=== PATIENT | male | born 1940 | race Caucasian/White ===

== ENCOUNTER 2017-09-11 03:58 | Emergency (ER) | payer OTHER ==
[~2017-09-11 03:58] MED LIST: ATEN50TA PO; FELO10TA31 PO; HYDR12.54 PO; LATA2.5D2 OU
[2017-09-11 04:19] LABS: BASOPHILS % (AUTO) 0.5 % (0.0-5.0); EOSINOPHILS % (AUTO) 0.9 % (0.0-8.0); HEMATOCRIT 37.4 % (42-54); LYMPHOCYTES % (AUTO) 8.5 % (21.0-51.0); MEAN CORPUSCULAR HEMOGLOBIN 32.9 pg (27.0-33.0); MEAN CORPUSCULAR HGB CONC 35.8 g/dL (32.0-36.0); MEAN CORPUSCULAR VOLUME 91.8 fL (79-99); MONOCYTES % (AUTO) 6.7 % (3.0-13.0); NEUTROPHILS % (AUTO) 83.4 % (40.0-77.0); PLATELET COUNT (AUTO) 264 K/uL (130-400); RED BLOOD CELL COUNT(AUTO) 4.07 MIL/uL (4.50-6.20); RED CELL DISTRIBUTION WIDTH 13.4 % (11.0-15.5); WHITE BLOOD COUNT (AUTO) 10.5 K/uL (4.8-10.8)
[2017-09-11 04:29] LABS: CREATININE 0.8 mg/dL (0.5-1.5); POTASSIUM 3.5 mmol/L (3.5-5.1)
[2017-09-11 04:34] LABS: INR 0.95 (0.85-1.15); PARTIAL THROMBOPLASTIN TIME 26.6 SEC (26.3-35.5)
[2017-09-11 04:42] LABS: ALBUMIN 4.1 g/dL (3.5-5.0); BILIRUBIN,TOTAL 0.4 mg/dL (0.2-1.0); CREATINE KINASE MB 2.5 ng/mL (0.5-3.6); TOTAL PROTEIN, SERUM 7.5 g/dL (6.0-8.3)
[2017-09-11] MEDS ORDERED: LIDOCAINE HCL 2% VISCOUS 15 ML UDCUP ONE (04:57)
[2017-09-11] MEDS ORDERED: MAG HYDROX/AL HYDROX/SIMETH ES 30 ML SUSP UDCUP ONE (04:57)
[2017-09-11 05:46] LABS: APPEARANCE,URINE CLEAR (CLEAR); BILIRUBIN,URINE Negative (NEGATIVE); COLOR,URINE Dark Yellow (YELLOW); GLUCOSE, URINE (UA) Negative (NEGATIVE); KETONES,URINE Trace mg/dL (NEGATIVE); LEUKOCYTE ESTERASE ,URINE Negative (NEGATIVE); NITRATE,URINE Negative (NEGATIVE); OCCULT BLOOD,URINE Negative (NEGATIVE); PH,URINE 7.5 (5.0-8.0); PROTEIN,URINE Negative (NEGATIVE); UROBILINOGEN,URINE 0.2 mg/dL (0.2-1.0)
== END 2017-09-11 06:09 | disposition home or self-care (01) ==
LOC: EDH 03:58
DX: R10.10 Upper abdominal pain, unspecified (principal); I10 Essential (primary) hypertension; Z88.8 Allergy status to other drugs, medicaments and biological substances
CPT/HCPCS: 36415; 74176; 80053; 81003; 82150; 82550; 82553; 83690; 84484; 85025; 85610; 85730; 93005

== ENCOUNTER → 2018-06-05 | Outpatient (CLI) | payer OTHER | END | disposition home or self-care (01) | LOC: RAH 10:58 | PROVIDERS: ATTEND Nurse Practitioner Family | DX: M47.22 Other spondylosis with radiculopathy, cervical region (principal); M48.02 Spinal stenosis, cervical region; M50.10 Cervical disc disorder with radiculopathy, unspecified cervical region; J32.0 Chronic maxillary sinusitis; G62.9 Polyneuropathy, unspecified | CPT/HCPCS: 72040; 72141 ==

== ENCOUNTER → 2018-08-02 | Outpatient (CLI) | payer OTHER | END | disposition home or self-care (01) | LOC: RAH 13:12 | PROVIDERS: ATTEND Physical Medicine & Rehabilitation | DX: M19.031 Primary osteoarthritis, right wrist (principal); M18.0 Bilateral primary osteoarthritis of first carpometacarpal joints | CPT/HCPCS: 73100 ==

== ENCOUNTER 2021-08-14 14:30 | Emergency (ER) | payer MEDICARE, OTHER ==
[~2021-08-14] VITALS: Ht 172.7 cm; Wt 72.1 kg
[~2021-08-14 14:30] MED LIST changes: -FELO10TA31 PO; +FELO10TA46 PO; +LATA2.5D14 OU; -LATA2.5D2 OU
[2021-08-14 14:44] VITALS: BP 149/84
[2021-08-14] MEDS ORDERED: TETANUS/DIPHTHERIA TOXOID [ADULT] 0.5 ML VIAL IM ONE (15:00)
[2021-08-14] MEDS ORDERED: ACETAMINOPHEN 500 MG TABLET PO ONE (15:00)
[2021-08-14 15:51] LABS: BASOPHILS % (AUTO) 0.3 % (0.0-5.0); EOSINOPHILS % (AUTO) 0.6 % (0.0-8.0); HEMATOCRIT 37.5 % (42-54); LYMPHOCYTES % (AUTO) 6.7 % (21.0-51.0); MEAN CORPUSCULAR HEMOGLOBIN 31.9 pg (27.0-33.0); MEAN CORPUSCULAR HGB CONC 34.4 g/dL (32.0-36.0); MEAN CORPUSCULAR VOLUME 92.8 fL (79-99); MONOCYTES % (AUTO) 5.1 % (3.0-13.0); PLATELET COUNT (AUTO) 258 K/uL (130-400); RED BLOOD CELL COUNT(AUTO) 4.04 MIL/uL (4.50-6.20); RED CELL DISTRIBUTION WIDTH 12.7 % (11.0-15.5); WHITE BLOOD COUNT (AUTO) 9.1 K/uL (4.8-10.8)
[2021-08-14 16:14] LABS: POTASSIUM 3.5 mmol/L (3.5-5.1)
[2021-08-14 16:15] LABS: BILIRUBIN,TOTAL 0.4 mg/dL (0.2-1.0); CREATININE 0.6 mg/dL (0.5-1.5)
[2021-08-14 16:16] LABS: TOTAL PROTEIN, SERUM 7.5 g/dL (6.0-8.3)
[2021-08-14] MEDS ORDERED: LIDOCAINE HCL-MPF 2% 5ML VIAL ONE (16:25)
[2021-08-14] MEDS ORDERED: LIDOCAINE HCL 1% 20 ML VIAL INJ SCH (16:30)
== END 2021-08-14 17:07 | disposition home or self-care (01) ==
LOC: EDH 14:30
DX: S01.81XA Laceration without foreign body of other part of head, initial encounter (principal); S16.1XXA Strain of muscle, fascia and tendon at neck level, initial encounter; I10 Essential (primary) hypertension; W18.39XA Other fall on same level, initial encounter; Y93.89 Activity, other specified; Y92.89 Other specified places as the place of occurrence of the external cause; Y99.8 Other external cause status
CPT/HCPCS: 12013; 36415; 70450; 72125; 80053; 84484; 85025; 90471; 90714; 99284; J3490

== ENCOUNTER 2021-08-21 13:00 | Emergency (ER) | payer MEDICARE ==
[~2021-08-21] VITALS: Ht 172.7 cm; Wt 69.4 kg
[2021-08-21 13:59] VITALS: BP 101/66
== END 2021-08-21 14:02 | disposition home or self-care (01) ==
LOC: EDH 13:00
DX: S01.81XD Laceration without foreign body of other part of head, subsequent encounter (principal); I10 Essential (primary) hypertension; Z79.899 Other long term (current) drug therapy; X58.XXXD Exposure to other specified factors, subsequent encounter
CPT/HCPCS: 99281

== ENCOUNTER 2022-06-16 14:38 | Observation (INO) | payer MEDICARE ==
[~2022-06-16] VITALS: Ht 172.7 cm; Wt 71.0 kg
[2022-06-16] MEDS ORDERED: 0.9%NACL 1000ML 1,000 ML IV ONE (16:30)
[2022-06-16 16:32] LABS: BASOPHILS % (AUTO) 0.2 % (0.0-5.0); EOSINOPHILS % (AUTO) 0.2 % (0.0-8.0); HEMATOCRIT 39.4 % (42-54); MEAN CORPUSCULAR HEMOGLOBIN 31.1 pg (27.0-33.0); MEAN CORPUSCULAR HGB CONC 34.5 g/dL (32.0-36.0); MONOCYTES % (AUTO) 5.1 % (3.0-13.0); NEUTROPHILS % (AUTO) 92.2 % (40.0-77.0); PLATELET COUNT (AUTO) 269 K/uL (130-400); RED BLOOD CELL COUNT(AUTO) 4.38 MIL/uL (4.50-6.20); RED CELL DISTRIBUTION WIDTH 12.4 % (11.0-15.5); WHITE BLOOD COUNT (AUTO) 15.7 K/uL (4.8-10.8)
[2022-06-16] MEDS: DICYCLOMINE HCL 20 MG TAB PO SCH (16:36)
[2022-06-16 16:42] LABS: APPEARANCE,URINE CLEAR (CLEAR); BILIRUBIN,URINE NEGATIVE (NEGATIVE); COLOR,URINE YELLOW (YELLOW); GLUCOSE, URINE (UA) NEGATIVE (NEGATIVE); KETONES,URINE NEGATIVE (NEGATIVE); LEUKOCYTE ESTERASE ,URINE NEGATIVE Leu/uL (NEGATIVE); NITRATE,URINE NEGATIVE (NEGATIVE); OCCULT BLOOD,URINE NEGATIVE (NEGATIVE); PH,URINE 5.5 (5.0-8.0); PROTEIN,URINE NEGATIVE (NEGATIVE); UROBILINOGEN,URINE 0.2 mg/dL (0.2-1.0)
[2022-06-16 16:47] LABS: RBC,URINE 0-1 /HPF (0-1); WBC,URINE 0-1 /HPF (0-1)
[2022-06-16 16:48] LABS: ALBUMIN 3.7 g/dL (3.5-5.0); CREATININE 0.7 mg/dL (0.5-1.5); TOTAL PROTEIN, SERUM 7.2 g/dL (6.0-8.3)
[2022-06-16 16:51] LABS: POTASSIUM 2.7 mmol/L (3.5-5.1)
[2022-06-16] MEDS ORDERED: POTA-202 PO (16:57)
[2022-06-16] MEDS: POTASSIUM CHLORIDE 20MEQ/100ML 100 ML IV ONE ×2 (17:19→18:50)
[2022-06-16] MEDS: POTASSIUM CHLORIDE 20 MEQ/100 ML BAG IV SCH ×2 (17:30→17:42)
[2022-06-16] MEDS ORDERED: ONDANSETRON 4MG INJ IV PRN (18:30)
[2022-06-16] MEDS ORDERED: ACETAMINOPHEN 325 MG TAB PO PRN ×2 (18:30)
[2022-06-16] MEDS ORDERED: POTASSIUM CHLORIDE 10% ELIXIR 20 MEQ/15 ML UDCUP ONE (19:13)
[2022-06-16] MEDS: LACTATED RINGERS 1000ML 1,000 ML IV SCH (19:16)
[2022-06-16] MEDS: POTASSIUM CHLORIDE 10% ELIXIR 20 MEQ/15 ML UDCUP PO SCH (19:16)
[2022-06-16] MEDS ORDERED: NS-20 MEQ KCL 1000ML 1,000 ML IV ONE (21:00)
[2022-06-16] MEDS: METRONIDAZOLE 500MG/100ML BAG 100 ML IVPB SCH (21:46)
[2022-06-16 23:30] VITALS: BP 132/81
[2022-06-17 04:00] VITALS: BP 119/66
[2022-06-17 05:24] LABS: BASOPHILS % (AUTO) 0.3 % (0.0-5.0); EOSINOPHILS % (AUTO) 2.1 % (0.0-8.0); HEMATOCRIT 33.1 % (42-54); LYMPHOCYTES % (AUTO) 8.7 % (21.0-51.0); MEAN CORPUSCULAR HEMOGLOBIN 30.9 pg (27.0-33.0); MEAN CORPUSCULAR HGB CONC 32.6 g/dL (32.0-36.0); MEAN CORPUSCULAR VOLUME 94.8 fL (79-99); MONOCYTES % (AUTO) 11.5 % (3.0-13.0); PLATELET COUNT (AUTO) 223 K/uL (130-400); RED BLOOD CELL COUNT(AUTO) 3.49 MIL/uL (4.50-6.20); RED CELL DISTRIBUTION WIDTH 12.6 % (11.0-15.5); WHITE BLOOD COUNT (AUTO) 7.1 K/uL (4.8-10.8)
[2022-06-17] MEDS: METRONIDAZOLE 500MG/100ML BAG 100 ML IVPB SCH ×3 (05:43→20:57)
[2022-06-17 06:03] LABS: B-TYPE NATRIURETIC PEPTIDE 67 pg/mL (0-100)
[2022-06-17] MEDS: LACTATED RINGERS 1000ML 1,000 ML IV SCH ×3 (06:05→23:39)
[2022-06-17 08:00] VITALS: BP 123/72
[2022-06-17] MEDS: POTASSIUM CHLORIDE 10% ELIXIR 20 MEQ/15 ML UDCUP PO SCH (09:36)
[2022-06-17] MEDS: PANTOPRAZOLE 40 MG TAB DR PO SCH (09:36)
[2022-06-17 12:00] VITALS: BP 112/65
[2022-06-17] MEDS ORDERED: LIDOCAINE HCL-MPF 1% 2ML VIAL IV PRN (15:30)
[2022-06-17] MEDS ORDERED: LACTOBACILLUS RHAMNOSUS GG 1 EACH CAP.SPRINK PO SCH (15:30)
[2022-06-17] MEDS ORDERED: POTASSIUM CHLORIDE 20MEQ/100ML 100 ML IV PRN (15:30)
[2022-06-17] MEDS ORDERED: POTASSIUM CHLORIDE 10% ELIXIR 20 MEQ/15 ML UDCUP PO PRN (15:30)
[2022-06-17 15:51] LABS: MAGNESIUM 1.6 mg/dL (1.80-2.40); POTASSIUM 3.1 mmol/L (3.5-5.1)
[2022-06-17 16:00] VITALS: BP 120/68
[2022-06-17] MEDS: DICYCLOMINE HCL 20 MG TAB PO SCH (16:06)
[2022-06-17] MEDS: MAGNESIUM 2GM PREMIX 50ML 50 ML IV PRN (16:42)
[2022-06-17 20:00] VITALS: BP 117/80
[2022-06-17] MEDS: ATENOLOL 50 MG TABLET PO SCH (20:58)
[2022-06-18] VITALS: BP 135/65
[2022-06-18] MEDS: KCL 20 MEQ ERTAB PO PRN ×3 (00:19→12:57)
[2022-06-18 04:00] VITALS: BP 152/89
[2022-06-18] MEDS: METRONIDAZOLE 500MG/100ML BAG 100 ML IVPB SCH ×2 (05:06→14:10)
[2022-06-18] MEDS: MAGNESIUM 2GM PREMIX 50ML 50 ML IV PRN (06:49)
[2022-06-18 08:00] VITALS: BP 130/72
[2022-06-18] MEDS: PANTOPRAZOLE 40 MG TAB DR PO SCH (08:17)
[2022-06-18 08:19] VITALS: BP 152/89
[2022-06-18] MEDS: ATENOLOL 50 MG TABLET PO SCH (08:19)
[2022-06-18] MEDS ORDERED: KCL 20 MEQ ERTAB PO SCH (09:00)
[2022-06-18] MEDS ORDERED: POTA-202 PO (16:00)
[2022-06-18] MEDS ORDERED: METR-172 PO (16:00)
[2022-06-18] MEDS ORDERED: AMLO-257 PO (16:00)
== END 2022-06-18 17:45 | disposition home or self-care (01) ==
LOC: EDH 14:38 → INTOOBSV 18:26 → EDHIP 18:26 → 3BH 06-17 00:19
PROVIDERS: ADMIT Hospitalist; ATTEND Hospitalist
DX: K52.9 Noninfective gastroenteritis and colitis, unspecified (principal); R65.10 Systemic inflammatory response syndrome (SIRS) of non-infectious origin without acute organ dysfunction; E87.6 Hypokalemia; D72.829 Elevated white blood cell count, unspecified; I10 Essential (primary) hypertension; E78.5 Hyperlipidemia, unspecified; Z87.11 Personal history of peptic ulcer disease; Z79.899 Other long term (current) drug therapy
CPT/HCPCS: 96361 ×4; 96368; 99285; 84484; 80053; 85025 ×2; 83605; 81001; 36415 ×3; 71045; 74176; 96365; 96375; 93005; 84145; 96366 ×2; 96367; 83735 ×2; 84132 ×2; 83880; 87324; 87507; J7120 ×4; J7030; J2405; J3480 ×2; J3490 ×5; J3475 ×2; G0378 ×3

== ENCOUNTER 2022-06-27 10:44 | Emergency (ER) | payer MEDICARE ==
[~2022-06-27] VITALS: Ht 172.7 cm; Wt 69.4 kg
[~2022-06-27 10:44] MED LIST changes: +AMLO-257 PO; -HYDR12.54 PO; +METR-172 PO; +POTA-202 PO
[2022-06-27 10:46] VITALS: BP 124/84
[2022-06-27 11:25] LABS: BASOPHILS % (AUTO) 0.1 % (0.0-5.0); EOSINOPHILS % (AUTO) 0.5 % (0.0-8.0); HEMATOCRIT 35.1 % (42-54); LYMPHOCYTES % (AUTO) 5.2 % (21.0-51.0); MEAN CORPUSCULAR HGB CONC 33.6 g/dL (32.0-36.0); MEAN CORPUSCULAR VOLUME 92.1 fL (79-99); MONOCYTES % (AUTO) 5.8 % (3.0-13.0); NEUTROPHILS % (AUTO) 88.1 % (40.0-77.0); PLATELET COUNT (AUTO) 267 K/uL (130-400); RED BLOOD CELL COUNT(AUTO) 3.81 MIL/uL (4.50-6.20); RED CELL DISTRIBUTION WIDTH 12.9 % (11.0-15.5); WHITE BLOOD COUNT (AUTO) 10.7 K/uL (4.8-10.8)
[2022-06-27 11:33] LABS: CREATININE 0.7 mg/dL (0.5-1.5); POTASSIUM 3.8 mmol/L (3.5-5.1)
[2022-06-27 11:38] LABS: ALBUMIN 3.2 g/dL (3.5-5.0); TOTAL PROTEIN, SERUM 6.2 g/dL (6.0-8.3)
[2022-06-27] MEDS ORDERED: MAGNESIUM OXIDE 400 MG TABLET PO SCH (12:00)
[2022-06-27] MEDS ORDERED: DIPH1TAB PO (12:00)
[2022-06-27] MEDS ORDERED: LEVO750T68 PO (12:00)
[2022-06-27] MEDS ORDERED: LEVOFLOXACIN 750 MG TABLET PO SCH (12:00)
[2022-06-27] MEDS ORDERED: LEVOFLOXACIN 500 MG TABLET ONE (12:30)
[2022-06-27] MEDS ORDERED: MAGNESIUM OXIDE 400 MG TABLET PO ONE (12:30)
== END 2022-06-27 12:38 | disposition home or self-care (01) ==
LOC: EDH 10:44
DX: A04.5 Campylobacter enteritis (principal); I10 Essential (primary) hypertension; Z79.899 Other long term (current) drug therapy
CPT/HCPCS: 36415; 80053; 83690; 83735; 85025

== ENCOUNTER → 2022-07-05 | Outpatient (CLI) | payer MEDICARE ==
[~2022-07-05] MED LIST changes: +DIPH1TAB PO; +LEVO750T68 PO
== END | disposition home or self-care (01) ==
LOC: SLP 20:25
PROVIDERS: ATTEND Nurse Practitioner Family
DX: G47.33 Obstructive sleep apnea (adult) (pediatric) (principal)
CPT/HCPCS: 95810

== ENCOUNTER → 2022-07-26 | Outpatient (CLI) | payer MEDICARE ==
[2022-07-26 12:49] LABS: CREATININE 0.7 mg/dL (0.5-1.5); MAGNESIUM 2.1 mg/dL (1.80-2.40); POTASSIUM 3.7 mmol/L (3.5-5.1)
== END | disposition home or self-care (01) ==
LOC: LAB 09:02
PROVIDERS: ATTEND Internal Medicine Cardiovascular Disease
DX: R07.9 Chest pain, unspecified (principal); R01.1 Cardiac murmur, unspecified; R94.31 Abnormal electrocardiogram [ECG] [EKG]
CPT/HCPCS: 36415; 80048; 83735; 83880

== ENCOUNTER → 2022-08-15 | Outpatient (CLI) | payer MEDICARE | END | disposition home or self-care (01) | LOC: SLP 20:40 | PROVIDERS: ATTEND Nurse Practitioner Family | DX: G47.33 Obstructive sleep apnea (adult) (pediatric) (principal) | CPT/HCPCS: 95811 ==

== ENCOUNTER → 2023-11-22 | Outpatient (CLI) | payer MEDICARE ==
[2023-11-22 12:09] LABS: BASOPHILS # (AUTO) 0.02 K/uL (0.00-0.20); BASOPHILS % (AUTO) 0.4 % (0.0-5.0); EOSINOPHILS # (AUTO) 0.14 K/uL (0.00-0.70); EOSINOPHILS % (AUTO) 2.5 % (0.0-8.0); HEMATOCRIT 34.7 % (42-54); IMMATURE GRANULOCYTE ABSOLUTE 0.02 K/uL (0-1); LYMPHOCYTES # (AUTO) 0.7 K/uL (1.0-4.8); LYMPHOCYTES % (AUTO) 12.3 % (21.0-51.0); MEAN CORPUSCULAR HGB CONC 32.9 g/dL (32.0-36.0); MEAN CORPUSCULAR VOLUME 94.3 fL (79-99); MONOCYTES # (AUTO) 0.5 K/uL (0.1-1.0); MONOCYTES % (AUTO) 8.4 % (3.0-13.0); NEUTROPHILS # (AUTO) 4.3 K/uL (1.8-7.7); PLATELET COUNT (AUTO) 234 K/uL (130-400); RED BLOOD CELL COUNT(AUTO) 3.68 MIL/uL (4.50-6.20); RED CELL DISTRIBUTION WIDTH 13.5 % (11.0-15.5); WHITE BLOOD COUNT (AUTO) 5.6 K/uL (4.8-10.8)
[2023-11-22 12:33] LABS: ALBUMIN 3.9 g/dL (3.5-5.0); BILIRUBIN,TOTAL 0.6 mg/dL (0.2-1.0); CREATININE 0.8 mg/dL (0.5-1.3); POTASSIUM 3.8 mmol/L (3.5-5.1); T4 (THYROXINE) 6.5 ug/dL (4.7-13.3); THYROID STIMULATING HORMONE 2.8 uIU/mL (0.36-3.74); TOTAL PROTEIN, SERUM 7.2 g/dL (6.0-8.3)
== END | disposition home or self-care (01) ==
LOC: LAB 09:00
PROVIDERS: ATTEND Internal Medicine Cardiovascular Disease
DX: I48.0 Paroxysmal atrial fibrillation (principal); R60.9 Edema, unspecified; R94.39 Abnormal result of other cardiovascular function study; Z78.9 Other specified health status; Z79.899 Other long term (current) drug therapy
CPT/HCPCS: 36415; 80053; 80061; 83735; 84436; 84443; 85025

== ENCOUNTER → 2024-07-09 | Outpatient (CLI) | payer MEDICARE ==
[2024-07-09 12:02] LABS: BASOPHILS # (AUTO) 0.02 K/uL (0.00-0.20); BASOPHILS % (AUTO) 0.3 % (0.0-5.0); EOSINOPHILS # (AUTO) 0.13 K/uL (0.00-0.70); EOSINOPHILS % (AUTO) 2.2 % (0.0-8.0); HEMATOCRIT 34.4 % (42-54); IMMATURE GRANULOCYTE ABSOLUTE 0.02 K/uL (0-1); LYMPHOCYTES # (AUTO) 0.6 K/uL (1.0-4.8); LYMPHOCYTES % (AUTO) 9.6 % (21.0-51.0); MEAN CORPUSCULAR HEMOGLOBIN 31.4 pg (27.0-33.0); MEAN CORPUSCULAR HGB CONC 33.1 g/dL (32.0-36.0); MEAN CORPUSCULAR VOLUME 94.8 fL (79-99); MONOCYTES # (AUTO) 0.5 K/uL (0.1-1.0); MONOCYTES % (AUTO) 8.4 % (3.0-13.0); NEUTROPHILS # (AUTO) 4.6 K/uL (1.8-7.7); NEUTROPHILS % (AUTO) 79.2 % (40.0-77.0); PLATELET COUNT (AUTO) 216 K/uL (130-400); RED BLOOD CELL COUNT(AUTO) 3.63 MIL/uL (4.50-6.20); WHITE BLOOD COUNT (AUTO) 5.8 K/uL (4.8-10.8)
[2024-07-09 12:23] LABS: ALBUMIN 3.7 g/dL (3.5-5.0); BILIRUBIN,TOTAL 0.6 mg/dL (0.2-1.0); CREATININE 0.8 mg/dL (0.5-1.3); POTASSIUM 3.4 mmol/L (3.5-5.1); TOTAL PROTEIN, SERUM 6.7 g/dL (6.0-8.3)
== END | disposition home or self-care (01) ==
LOC: LAB 10:31
PROVIDERS: ATTEND Internal Medicine Cardiovascular Disease
DX: I48.0 Paroxysmal atrial fibrillation (principal); R60.0 Localized edema; R94.39 Abnormal result of other cardiovascular function study; Z79.899 Other long term (current) drug therapy
CPT/HCPCS: 36415; 80053; 80061; 85025

== ENCOUNTER 2024-07-22 19:24 | Emergency (ER) | payer MEDICARE ==
[~2024-07-22] VITALS: Ht 172.7 cm; Wt 72.6 kg
[2024-07-22 19:33] VITALS: BP 135/90; PULSE 95; RESP 16; TEMP 98.1; O2SAT 98
--- NOTE | 2024-07-22 19:42 | ERN ---
ED Note History of Present Illness Stated Complaint: RIGHT WRIST PAIN Chief Complaint: Wrist Pain/Injury Time Seen by MD: 19:25 Dictation: PATIENT IS AN 83-YEAR-OLD MALE HERE WITH COMPLAINTS OF NON TRAUMA RIGHT LATERAL WRIST PAIN SWELLING ONSET WAS YESTERDAY. HE STATES HE HAD BEEN ABLE TO MOWING HIS LAWN WITHOUT DIFFICULTY AND THEN THE PAIN STARTED AN HOUR AFTER FINISH. HE DENIES ANY HISTORY OF FEVER CHILLS RA/OA/NO HISTORY OF GOUT. HE STATES THE PAIN HAS GOTTEN PROGRESSIVELY WORSE. NEUROVASCULAR CMS INTACT. Allergies: Coded Allergies: No Known Allergies (Unverified Allergy, 10/18/11) Home Meds Active Scripts Diphenoxylate HCl/Atropine (Lomotil Tablet) 1 Each Tablet, 1 EACH PO QID for LOOSE STOOL, #30 TAB Prov:SEVERINO BOURNE MD 06/27/22 Levofloxacin (Levaquin 750Mg Tabs) 750 Mg Tablet, 750 MG PO DAILY for 4 Days, #4 TAB Prov:SEVERINO BOURNE MD 06/27/22 Metronidazole (Metronidazole) 500 Mg Tablet, 500 MG PO Q8H, #15 TAB 0 Refills Prov:EZEKIEL CAGE 06/18/22 Amlodipine Besylate (Amlodipine Besylate) 5 Mg Tablet, 5 MG PO DAILY, #30 TAB 0 Refills Prov:EZEKIEL CAGE 06/18/22 Potassium Chloride (Potassium Chloride) 20 Meq Tab.er.prt, 20 MEQ PO DAILY for 5 Days, #5 TAB Prov:EZEKIEL CAGENP 06/18/22 Reported Medications Atenolol (Atenolol) 50 Mg Tablet, 50 MG PO BID, TAB 11/15/16 Latanoprost (Latanoprost) 2.5 Ml Drops, 1 DROP OU HS, DROP 08/26/15 Felodipine (Felodipine ER) 10 Mg Tab.er.24h, 10 MG PO BID, TAB 08/26/15 Past Medical History Past Medical History: Diabetes-Type II, High Cholesterol, Hypertension Additional Past Medical Hx: PREDIABETIC , SLEEP APNEA Surgical History: Other Surgical History Other: CERVICAL FUSION, LEFT SHOULDER SX , SINUS Family History: Negative Social History: Negative RN Note Reviewed/Agreed w/PFSH: Yes Review of System Dictation CONSTITUTIONAL: NEGATIVE EXCEPT FOR HPI HEAD/FACE: NEGATIVE EXCEPT FOR HPI EENT: NEGATIVE EXCEPT FOR HPI RESPIRATORY: NEGATIVE EXCEPT FOR HPI GASTROINTESTINAL/ABDOMINAL: NEGATIVE EXCEPT FOR HPI GENITOURINARY: NEGATIVE EXCEPT FOR HPI MUSCULOSKELETAL: NEGATIVE EXCEPT FOR HPI RIGHT LATERAL WRIST PAIN SWELLING INTEGUMENTARY: NEGATIVE EXCEPT FOR HPI NEUROLOGICAL/PSYCH: NEGATIVE EXCEPT FOR HPI HEMATOLOGIC/LYMPHATIC: NEGATIVE EXCEPT FOR HPI ALL SYSTEMS NEGATIVE, EXCEPT NOTED ABOVE. 13 POINT REVIEW OF SYSTEMS ASSESSED AND ALL NEGATIVE EXCEPT FOR ABOVE. Initial Vital Sign VS Vital Signs Date Time Temp Pulse Resp B/P (MAP) Pulse Ox O2 Delivery O2 Flow Rate FiO2 07/22/24 19:25 98.1 99 20 138/92 100 Room Air 07/22/24 19:33 0 21 Physical Exam Dictation VITAL SIGNS REVIEWED GENERAL APPEARANCE: ALERT, ORIENTED X 3, SEVERE ACUTE DISTRESS, WELL DEVELOPED, NOURISHED. HEAD AND FACE: NON-TRAUMATIC. EYES: PERRL, PINK CONJUNCTIVAS, EYELID NO TRAUMA, ANTERIOR CHAMBER WITH ARCUS SENILIS. EARS: PINNAS INTACT AND NO SIGNS OF TRAUMA OR ERYTHEMA EAR CANALS CLEAR AND NO DISCHARGE TM NO ERYTHEMA NOSE: NO DISCHARGE, NO BLEEDING. OROPHARYNX: MOUTH NORMAL, TONGUE PINK, PHARYNX CLEAR,NO ERYTHEMA, TONSILS NO EXUDATES, NO ABSCESSES NOTED, MUCOUS MEMBRANE MOIST NECK: SUPPLE, NON-TENDER, NO THYROMEGALY, NO MASSES, NO JVD, NO BRUITS BREAST:DEFERRED CHEST:NO TENDERNESS, NO CREPITUS, NO PARADOXICAL MOVEMENT, NO RETRACTIONS LUNGS:CLEAR, WELL-VENTILATED, SYMMETRIC, NO RALES, NO WHEEZING, NO RHONCHI, NO STRIDOR, GOOD BREATH SOUNDS BILATERALLY HEART: REGULAR RATE, REGULAR RHYTHM, NO MURMUR, NO GALLOPS VASCULAR: NO PERIPHERAL EDEMA, ABDOMEN: SOFT, POSITIVE BOWEL SOUNDS, NONDISTENDED, NO GUARDING, NONTENDER, NO REBOUND, NO MASSES NO HEPATOMEGALY, NO SPLENOMEGALY, NO VORA'S SIGN, NO HERNIAS. RECTAL: DEFERRED GENITAL: DEFERRED NEUROLOGICAL SKIN: COLOR PINK, DRY, NO TURGOR, NO RASH, NO LACERATIONS, NO ABRASIONS, NO CONTUSIONS. LYMPHATIC: DEFERRED MUSCULAR; SEVERE DECREASED IN RANGE OF MOTION TO RIGHT LATERAL WRIST WITH SWELLING AND MILD ERYTHEMA NOTED. NEUROVASCULAR CMS INTACT Results (Laboratory/Radiology) Laboratory/Radiology Laboratory Tests Test 07/22/24 20:07 Uric Acid 3.8 mg/dL (2.6-7.2) RIGHT WRIST X-RAY DEMONSTRATES DEGENERATIVE CHANGES ONLY NO FRACTURE SOFT TISSUE SWELLING NOTED Labs Reviewed?: Yes ED Course ED Course Orders Procedure Category Date Status Time Uric Acid LAB 07/22/24 Complete 19:38 Wrist Comp 3+Vws Rt RAD 07/22/24 Taken 19:38 Ketorolac PHA 07/22/24 Complete Tromethamine 30mg/Ml 20:00 Dexamethasone 4mg/Ml PHA 07/22/24 Complete 1ml Vial (Dexametha 20:00 Acetaminophen With PHA 07/22/24 Verified Codeine (Tylenol-Code 21:00 Current Medications Medications (Trade) Dose Ordered Sig/Kofi Route PRN Reason Start Time Stop Time Status Last Admin Dose Admin Dexamethasone Sodium Phosphate (dexaMETHasone 4MG/ML 1ML VIAL) 8 mg ONCE ONCE IM 07/22/24 20:00 07/22/24 20:01 DC 07/22/24 19:56 Ketorolac Tromethamine (toRADol) 30 mg ONCE ONCE IM 07/22/24 20:00 07/22/24 20:01 DC 07/22/24 19:56 Vital Signs Date Time Temp Pulse Resp B/P (MAP) Pulse Ox O2 Delivery O2 Flow Rate FiO2 07/22/24 19:33 98.1 95 16 135/90 98 Room Air* 0 21 07/22/24 19:25 98.1 99 20 138/92 100 Room Air 2030/PATIENT STATES PAIN IS REDUCED SLIGHTLY AFTER TREATMENT WITH DECADRON AND TORADOL. WE WILL GIVE TYLENOL NO. 3 PRIOR TO DISCHARGED HOME TO FOLLOW UP WITH HIS DOCTOR TOMORROW. Medical Decision Making MDM MEDICAL DISCHARGE MAKING BASED ON URIC ACID AND X-RAY OF NON TRAUMA RIGHT WRIST PAIN. X-RAY DEMONSTRATES NON TRAUMA SWELLING WITHOUT FRACTURE URIC ACID NORMAL DIAGNOSED MONOARTICULAR ARTHRITIS DX & DISP Disposition: Discharge Departure Impression: Primary Impression: Monoarticular arthritis Additional Impression: Arthralgia of right wrist Condition: Stable Scripts Prednisone (Prednisone) 20 Mg Tablet 1 TAB PO AD for 6 Days, #14 TAB 0 Refills TAKE 1 TAB BY MOUTH THREE TIMES PER DAY X3 DAYS, THEN TAKE 1 TAB BY MOUTH TWICE A DAY X2 DAYS, THEN TAKE 1 TAB BY MOUTH ONCE A DAY X1 DAY. TAKE WITH FOOD Prov: MARGOT CHONG LOOSE HAND PACKER 07/22/24 Acetaminophen with Codeine (Acetaminophen-Cod #3 Tablet) 300 Mg-30 Mg Tablet 1 TAB PO Q4H PRN for MODERATE TO SEVERE PAIN, #15 TAB 0 Refills Prov: MARGOT CHONG NP 07/22/24 Additional Instructions: Follow-up with primary care provider in 1 to 2 days. Take medications as directed here in the emergency room. Okay to continue home medications unless otherwise discussed during your visit in the emergency room today. Return to your nearest emergency room if symptoms worsen or if there is no improvement. Call 911 if you need immediate assistance. Take Tylenol or Motrin [id number] as needed and if no contraindications are present. Increase oral hydration. A wound culture or urine culture was ordered here in the emergency room department please follow-up with primary care provider and advise them to get repeat ports from our facility. If you had any Dante wrap/splints that were applied here, please do not remove them until you see your primary care or specialty. Take prednisone as directed with food until gone. Take Tylenol No. 3 for severe pain. Warm compresses to wrist three to 4 times a day. See your primary care doctor for follow up in 1-2 days. Referrals: DERICK BOWMAN (PCP) Time of Disposition: 20:33 I have reviewed the case, and I agree with, Diagnosis and Plan MARGOT CHONG NP Jul 22, 2024 19:42
[2024-07-22] MEDS: dexaMETHasone SOD PHOSPHATE 4 MG/ML 1ML VIAL IM ONE (19:56)
[2024-07-22] MEDS: ketOROlac 30MG VIAL (30MG/ML) IM ONE (19:56)
[2024-07-22] MEDS ORDERED: ACET-2079 PO (20:34)
[2024-07-22] MEDS ORDERED: PRED20TA3 PO (20:34)
--- NOTE | 2024-07-22 20:44 | HMCIMG ---
WRIST COMP 3+VWS RT CLINICAL HISTORY: NON TRAUMA RIGHT WRIST PAIN WITH SWELLING ONSET YESTERDAY. COMPARISON: None TECHNIQUE: AP lateral and oblique images were obtained. FINDINGS: No obvious fracture or dislocation. No joint effusion. No radiopaque foreign bodies. The carpal bones. 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 The soft tissues appear edematous. IMPRESSION: There is no acute bony findings. Soft tissue edema
[2024-07-22] MEDS: acetaMINOPHEN WITH coDEINE 1 TAB TAB PO ONE (20:59)
== END 2024-07-22 21:05 | disposition home or self-care (01) ==
LOC: EDH 19:24
DX: M19.031 Primary osteoarthritis, right wrist (principal); M25.531 Pain in right wrist; E11.9 Type 2 diabetes mellitus without complications; E78.00 Pure hypercholesterolemia, unspecified; I10 Essential (primary) hypertension; Z79.899 Other long term (current) drug therapy
CPT/HCPCS: 99284; 84550; 36415; 73110; 96372 ×2; J1100; J1885